=== PATIENT | male | born 1995 | race Caucasian/White ===

== ENCOUNTER 2023-07-17 22:13 | Emergency (ER) | payer MEDICAID ==
[~2023-07-17] VITALS: Ht 193 cm; Wt 69.1 kg
[2023-07-17] MEDS: acetaminophen 325mg tablet PO ONE (22:39)
[2023-07-17] MEDS: ketorolac tromethamine 15mg/ml inj. IM ONE (22:40)
[2023-07-17] MEDS: mag hydrox/Alum hydrox/simeth 30ml oral suspension PO ONE (22:42)
[2023-07-17] MEDS: LIDOcaine 2% Viscous 15ml cup MM ONE (22:43)
[2023-07-17 22:50] LABS: STREP A SCREEN NEGATIVE (Neg)
[2023-07-17 23:21] VITALS: BP 102/58; PULSE 69; RESP 16; O2SAT 97
== END 2023-07-17 23:25 | disposition home or self-care (01) ==
LOC: ER 22:14
DX: J03.80 Acute tonsillitis due to other specified organisms (principal); Z88.2 Allergy status to sulfonamides
CPT/HCPCS: 82948; 87081; 87880; 96372; 99283; J1885